=== PATIENT | male | born 1940 | race Caucasian/White ===

== ENCOUNTER 2020-01-16 16:30 | Emergency (ER) | payer OTHER ==
[~2020-01-16] VITALS: Ht 185.4 cm; Wt 149.7 kg
--- NOTE | ~2020-01-16 | EKG ---
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: : 1940 Requested By: Alejandro Lody Order Number: [id number] MD: Measurements Intervals [place] Rate: 64 P: [place]: QRS: -32 QRSD: 116 T: 99 QT: 415 QTc: 428 Interpretive Statements Atrial fibrillation LVH with secondary repolarization abnormality Inferior infarct, old Compared to ECG 10/11/2016 12:43:26 Left ventricular hypertrophy now present Early repolarization now present Sinus bradycardia no longer present Atrial premature complex(es) no longer present Left bundle-branch block no longer present Myocardial infarct finding still present [email or web address] By: 1638 1638 Epiphany Epiphany, /EPI
[~2020-01-16 16:30] MED LIST: ASPIR 8181 MG PO; AZO BLADDER CO300 MG PO; BENICAR HCT 401 EAC1 PO; BYSTOLIC 5 MG5 M1 PO; COENZYME Q10200 M2 PO; CRESTOR10 MG PO; ELIQUIS5 MG PO; LASIX 40 MG TAB40 M2 PO; OMEGA-31000 M1 PO; PACERONE 200 M200 M1 PO; POTASSIUM20 PO; PRILOSEC OTC20 MG PO; UNICOMPLEX M TA1 TA1 PO; VITAMIN B COMP1 EAC7 PO; VITAMIN D3400 UNIT PO
[2020-01-16 16:59] LABS: ABSOLUTE NEUTROPHILS 3.6 thou/uL (1.4-8.2); BASOPHILS 1.3 % (0.0-2.0); EOSINOPHILS 1.3 % (0.0-3.0); HEMATOCRIT 43.3 % (42.0-52.0); HEMOGLOBIN 14.4 gm/dL (14.0-18.0); LYMPHOCYTES 20.3 % (24.0-44.0); MCH 31.9 pg (26.0-34.0); MCHC 33.3 g/dL (28.0-37.0); MCV 95.9 fL (80.0-100.0); MONOCYTES 6.6 % (1.0-8.0); PLATELET COUNT 146 thou/uL (150-400); POLYS 70.5 % (36.0-66.0); RBC 4.52 mil/uL (4.50-6.00); RDW 15.1 % (10.5-14.5); WBC 5.1 thou/uL (4.0-11.0)
[2020-01-16 17:12] LABS: APTT 29.3 Seconds (24.5-32.8); INR 1.3; PROTIME 12.9 Seconds (9.3-11.4)
[2020-01-16 17:18] LABS: ANION GAP 9 mmol/L (7-16); BUN 20 mg/dL (7-18); CALCIUM 9.2 mg/dL (8.5-10.1); CHLORIDE 101 mmol/L (98-107); CO2 29 mmol/L (21-32); CREATININE 1.4 mg/dL (0.7-1.3); GLUCOSE 112 mg/dL (74-106); POTASSIUM 3.8 mmol/L (3.5-5.1); SODIUM 139 mmol/L (136-145)
[2020-01-16 17:23] LABS: ALBUMIN 3.6 g/dL (3.4-5.0); SGOT 25 U/L (15-37); SGPT 23 U/L (30-65); TOTAL BILIRUBIN 0.6 mg/dL (<0.1-1.0); TOTAL PROTEIN 7.4 g/dL (6.4-8.2); TROPONIN-I <0.06 ng/mL (<0.06)
[2020-01-16] MEDS ORDERED: IRBESARTAN300 MG PO (18:02)
[2020-01-16] MEDS ORDERED: HYDROCHLOROTHIA25 M2 PO (18:02)
[2020-01-16] MEDS ORDERED: BYSTOLIC10 MG PO (18:03)
[2020-01-16 18:32] VITALS: BP 179/83
--- NOTE | 2020-01-17 13:20 | EKG ---
[facility] [place] [address] [place] [address] ELECTROCARDIOGRAM REPORT Name: CHASTITY CAUSEY V Room #: DEP [facility]#: [id number] Admission: 01/16/20 Attend Phys: Discharge: 01/16/20 Date of : 40 Report #: [id number] THIS REPORT FOR: cc: Margarita Barroso MD, J. Christopher MD Lundgren, Craig H. MD [facility] ~ THIS REPORT FOR: //name// [facility] ED Test Date: 2020-01-16 Test Time: 16:38:16 Pat Name: CHASTITY CAUSEY Department: Room: Gender: Layout Former: : 1940 Requested By: Alejandro Loyd Order Number: [id number] MD: Kenji Recio Measurements Intervals [place] Rate: 64 P: [place]: QRS: -32 QRSD: 116 T: 99 QT: 415 QTc: 428 Interpretive Statements Atrial fibrillation LVH with secondary repolarization abnormality Inferior infarct, old Compared to ECG 10/11/2016 12:43:26 Left ventricular hypertrophy now present Atrial fibrillation has replaced sinus bradycardia Electronically Signed On 01-17-2020 13:19:37 CDT by Kenji Recio [email or web address] <ELECTRONICALLY SIGNED> By: Kenji Recio MD, [facility] 01/17/20 1319 1638 1638 Kenji Recio MD, [facility] /EPI
== END 2020-01-16 18:33 | disposition home or self-care (01) ==
LOC: ER 16:30
PROVIDERS: Emergency Medicine
DX: I48.20 Chronic atrial fibrillation, unspecified (principal); R94.6 Abnormal results of thyroid function studies; I11.0 Hypertensive heart disease with heart failure; I50.9 Heart failure, unspecified; M19.90 Unspecified osteoarthritis, unspecified site; Z79.01 Long term (current) use of anticoagulants; Z98.61 Coronary angioplasty status; Z79.899 Other long term (current) drug therapy; Z79.82 Long term (current) use of aspirin

== ENCOUNTER → 2020-02-23 | Outpatient (CLI) | payer OTHER ==
[~2020-02-23] MED LIST changes: +BYSTOLIC10 MG PO; +HYDROCHLOROTHIA25 M2 PO; +IRBESARTAN300 MG PO
== END ==
LOC: SJCVCIMAG 02-22 11:06
DX: I08.3 Combined rheumatic disorders of mitral, aortic and tricuspid valves (principal); I27.20 Pulmonary hypertension, unspecified; I48.91 Unspecified atrial fibrillation; I11.9 Hypertensive heart disease without heart failure; I71.4 Abdominal aortic aneurysm, without rupture; E78.00 Pure hypercholesterolemia, unspecified; I65.29 Occlusion and stenosis of unspecified carotid artery; E04.1 Nontoxic single thyroid nodule; I25.810 Atherosclerosis of coronary artery bypass graft(s) without angina pectoris; Z95.1 Presence of aortocoronary bypass graft; Z87.891 Personal history of nicotine dependence

== ENCOUNTER → 2020-03-02 | Outpatient (CLI) | payer OTHER ==
[~2020-03-02] VITALS: Ht 188 cm; Wt 147.4 kg
[~2020-03-02] MED LIST changes: +AMIODARONE HCL400 MG PO; +CRESTOR40 MG PO; +FUROSEMIDE 40 M40 MG PO; +OPTIMAL D31250 MCG PO
[2020-03-02 07:51] VITALS: BP 161/82
--- NOTE | 2020-03-02 08:48 | TEE ---
[facility] [place] [place] [address] TRANSESOPHAGEAL ECHOCARDIOGRAM Name: CHASTITY CAUSEY V [id number] Admission: 03/02/20 Attend Phys: Kenji Recio MD, Discharge: Date of : 40 Report #: [id number] THIS REPORT FOR: cc: Margarita Barroso MD, J. Christopher MD Lundgren, Craig H. MD [facility] ~ APPROVED REPORT Study performed: 03/02/2020 07:35:58 EXAM: Transesophageal Echocardiogram with Doppler and Cardioversion Patient Location: Out-Patient Room #: HOLDING Status: routine BSA: 2.64 HR: 64 bpm BP: 176/89 mmHg Rhythm: Atrial Fibrillation Other Information Study Quality: Good Indications Atrial Fibrillation Cardioversion Hx: CABG, cardioversions, HTN, HLP. Echo Enhancing Agent Indication: Rule out Shunt Agent(s) / Amount(s) Used: Agitated Saline 7 cc Procedure After obtaining informed consent, patient underwent transesophageal echo in the [facility]. Type of Sedation : Conscious Sedation Sedation was administered by ADI Seals. Sedation was achieved intravenously with: Versed (5.5) Fentanyl (100) Transesophageal probe was inserted and advanced into esophagus without difficulty by Kenji Recio MD. The BELEN was performed without complications. Synchronized Cardioversion acheived with 120 then 200 Joules after 2 attempt(s). [facility] [place] [address] TRANSESOPHAGEAL ECHOCARDIOGRAM Name: CHASTITY CAUSEY V Room #: REG [place]#: [id number] Admission: 03/02/20 Attend Phys: Kenji Recio, Discharge: Date of : 40 Report #: [id number] Rhythm following Synchronized Cardioversion: Normal Sinus Rhythm Throughout the procedure, the blood pressure, pulse oximetry, cardiac rhythm, and rate were monitored. The patient tolerated the procedure without adverse effects. Recovery from conscious sedation was uneventful and vital signs were stable. Left Ventricle Left ventricle is dilated. There is concentric left ventricular hypertrophy. Left ventricular systolic function is low normal. LVEF is 50%. Right Ventricle The right ventricle is normal size. The right ventricular systolic function is normal. Atria Left atrium is severely dilated. No thrombus is visualized in the left atrium or appendage. No shunting noted with contrast bubble injection. The right atrium size is normal. Aortic Valve The aortic valve is normal in structure. No aortic regurgitation is present. There is no aortic valvular stenosis. Mitral Valve The mitral valve is normal in structure. Mild mitral regurgitation. No evidence of mitral valve stenosis. Tricuspid Valve The tricuspid valve is normal in structure. Trace tricuspid regurgitation. Pulmonic Valve The pulmonary valve is normal in structure. Trace pulmonic regurgitation. Great Vessels The aortic root is normal in size. Ascending aorta is dilated. Atherosclerotic plaque is present in the aorta. IVC is normal in size and collapses >50% with inspiration. Pericardium There is no pericardial effusion. Critical Notification [facility] [address] [place] [address] TRANSESOPHAGEAL ECHOCARDIOGRAM Name: CHASTITY CAUSEY V Room #: REG [facility]#: [id number] Admission: 03/02/20 Attend Phys: Kenji Recio, Discharge: Date of : 40 Report #: [id number] Physician Notified <Conclusion> Left ventricular systolic function is low normal. LVEF is 50%. Left atrium is severely dilated. No shunting noted with contrast bubble injection. No thrombus is visualized in the left atrium or appendage. The aortic valve is normal in structure. No aortic regurgitation or stenosis. The mitral valve is normal in structure. Mild mitral regurgitation. There is no pericardial effusion. Successful cardioversion following two biphasic synchronous joules shocks (120J, 200J) <ELECTRONICALLY SIGNED> By: Kenji Recio MD, FACC 03/02/2046 5 5 Kenji Recio MD, FACC /INF
== END | disposition home or self-care (01) ==
LOC: CATH 06:26
DX: I48.91 Unspecified atrial fibrillation (principal); I08.1 Rheumatic disorders of both mitral and tricuspid valves; I70.0 Atherosclerosis of aorta; I11.0 Hypertensive heart disease with heart failure; I50.9 Heart failure, unspecified; E78.5 Hyperlipidemia, unspecified; M19.90 Unspecified osteoarthritis, unspecified site; E66.09 Other obesity due to excess calories; Z82.49 Family history of ischemic heart disease and other diseases of the circulatory system; Z95.1 Presence of aortocoronary bypass graft; Z87.891 Personal history of nicotine dependence; Z98.890 Other specified postprocedural states; Z79.899 Other long term (current) drug therapy; Z79.01 Long term (current) use of anticoagulants

== ENCOUNTER → 2020-03-09 | Outpatient (CLI) | payer OTHER | LOC: SJCVCIMAG 12:41 → SJCVC 12:41 → SJCVCIMAG 03-10 16:10 | DX: I44.0 Atrioventricular block, first degree (principal); I44.7 Left bundle-branch block, unspecified; I25.10 Atherosclerotic heart disease of native coronary artery without angina pectoris; I48.91 Unspecified atrial fibrillation; I71.4 Abdominal aortic aneurysm, without rupture; I10 Essential (primary) hypertension; E78.00 Pure hypercholesterolemia, unspecified; G47.33 Obstructive sleep apnea (adult) (pediatric); I51.7 Cardiomegaly; Z95.1 Presence of aortocoronary bypass graft ==

== ENCOUNTER → 2020-06-10 | Outpatient (CLI) | payer OTHER | LOC: SJCVC 13:39 | PROVIDERS: ATTEND Internal Medicine Cardiovascular Disease | DX: R94.31 Abnormal electrocardiogram [ECG] [EKG] (principal); I11.9 Hypertensive heart disease without heart failure; R00.1 Bradycardia, unspecified; R00.0 Tachycardia, unspecified; I25.10 Atherosclerotic heart disease of native coronary artery without angina pectoris; I48.0 Paroxysmal atrial fibrillation; I71.4 Abdominal aortic aneurysm, without rupture; I73.9 Peripheral vascular disease, unspecified; G47.33 Obstructive sleep apnea (adult) (pediatric) ==

== ENCOUNTER → 2021-01-18 | Outpatient (CLI) | payer OTHER | LOC: SJCVC 13:05 | PROVIDERS: ATTEND Internal Medicine Cardiovascular Disease | DX: I45.10 Unspecified right bundle-branch block (principal); R94.31 Abnormal electrocardiogram [ECG] [EKG]; I25.810 Atherosclerosis of coronary artery bypass graft(s) without angina pectoris; I48.0 Paroxysmal atrial fibrillation; I71.4 Abdominal aortic aneurysm, without rupture; I10 Essential (primary) hypertension; E78.00 Pure hypercholesterolemia, unspecified; G47.33 Obstructive sleep apnea (adult) (pediatric); I77.9 Disorder of arteries and arterioles, unspecified; E66.9 Obesity, unspecified; Z82.49 Family history of ischemic heart disease and other diseases of the circulatory system; Z95.1 Presence of aortocoronary bypass graft; Z87.891 Personal history of nicotine dependence; Z79.899 Other long term (current) drug therapy ==

== ENCOUNTER → 2021-06-12 | Outpatient (CLI) | payer OTHER | LOC: SJCVCIMAG 08:29 | PROVIDERS: ATTEND Internal Medicine Cardiovascular Disease | DX: I08.1 Rheumatic disorders of both mitral and tricuspid valves (principal); R94.31 Abnormal electrocardiogram [ECG] [EKG]; I48.91 Unspecified atrial fibrillation; I71.4 Abdominal aortic aneurysm, without rupture; I70.8 Atherosclerosis of other arteries; I72.3 Aneurysm of iliac artery; I11.9 Hypertensive heart disease without heart failure; I25.10 Atherosclerotic heart disease of native coronary artery without angina pectoris; E78.00 Pure hypercholesterolemia, unspecified; G47.33 Obstructive sleep apnea (adult) (pediatric); I48.0 Paroxysmal atrial fibrillation; I77.9 Disorder of arteries and arterioles, unspecified; E66.9 Obesity, unspecified; Z95.1 Presence of aortocoronary bypass graft; Z79.899 Other long term (current) drug therapy; Z86.16 Personal history of COVID-19; Z87.891 Personal history of nicotine dependence; Z82.49 Family history of ischemic heart disease and other diseases of the circulatory system ==

== ENCOUNTER → 2021-06-14 | Outpatient (CLI) | payer OTHER ==
[2021-06-14 15:13] LABS: CREATININE 1.4 mg/dL (0.7-1.3)
== END ==
LOC: CAT 14:19
PROVIDERS: ATTEND Internal Medicine Cardiovascular Disease
DX: I77.811 Abdominal aortic ectasia (principal); I25.10 Atherosclerotic heart disease of native coronary artery without angina pectoris; N28.89 Other specified disorders of kidney and ureter; K76.89 Other specified diseases of liver; N28.1 Cyst of kidney, acquired; I72.3 Aneurysm of iliac artery; M47.815 Spondylosis without myelopathy or radiculopathy, thoracolumbar region

== ENCOUNTER → 2021-07-05 | Outpatient (CLI) | payer OTHER | LOC: SJCVC 15:30 → SJCVCIMAG 15:30 | PROVIDERS: ATTEND Nuclear Medicine Nuclear Cardiology | DX: I65.23 Occlusion and stenosis of bilateral carotid arteries (principal); I71.4 Abdominal aortic aneurysm, without rupture; I48.0 Paroxysmal atrial fibrillation; I77.9 Disorder of arteries and arterioles, unspecified; I25.10 Atherosclerotic heart disease of native coronary artery without angina pectoris; I10 Essential (primary) hypertension; E78.00 Pure hypercholesterolemia, unspecified; Z95.1 Presence of aortocoronary bypass graft; K40.90 Unilateral inguinal hernia, without obstruction or gangrene, not specified as recurrent; E66.9 Obesity, unspecified; G47.33 Obstructive sleep apnea (adult) (pediatric); B02.9 Zoster without complications; Z87.891 Personal history of nicotine dependence; Z82.49 Family history of ischemic heart disease and other diseases of the circulatory system; Z79.899 Other long term (current) drug therapy ==

== ENCOUNTER → 2021-07-20 | Outpatient (CLI) | payer OTHER ==
[~2021-07-20] VITALS: Ht 185.4 cm; Wt 151.5 kg
[~2021-07-20] MED LIST changes: +BETA-SITOSTEROL PO; +COQ-10100 MG PO; +DUTASTERIDE0.5 MG PO; +FISH OIL 1,0001 EAC9 PO; +KLOR-CON M2020 MEQ PO; +MULTI VITAMIN1 EACH PO; +OMEPRAZOLE 20 M20 M1 PO; +TORSEMIDE20 MG PO; +VITCB500GO PO; +ZINC50 M2 PO
[2021-07-20 07:30] VITALS: BP 114/70
[2021-07-20 08:08] LABS: HEMATOCRIT 42.1 % (42.0-52.0); HEMOGLOBIN 13.6 gm/dL (14.0-18.0); MCH 31.5 pg (26.0-34.0); MCHC 32.3 g/dL (28.0-37.0); MCV 97.5 fL (80.0-100.0); RBC 4.32 mil/uL (4.50-6.00); RDW 14.7 % (10.5-14.5); WBC 5.4 thou/uL (4.0-11.0)
[2021-07-20 08:11] LABS: CALCIUM 9.3 mg/dL (8.5-10.1); POTASSIUM 3.9 mmol/L (3.5-5.1)
[2021-07-20 15:15] LABS: URINE BILIRUBIN NEGATIVE (Negative); URINE BLOOD NEGATIVE (Negative); URINE CLARITY CLEAR; URINE COLOR YELLOW; URINE GLUCOSE-RANDOM* NEGATIVE (Negative); URINE KETONES TRACE (Negative); URINE LEUKOCYTES-REFLEX NEGATIVE (Negative); URINE NITRITE-REFLEX NEGATIVE (Negative); URINE PROTEIN (DIPSTICK) TRACE (Negative); URINE SPECIFIC GRAVITY 1.015 (1.005-1.035); URINE UROBILINOGEN 0.2 E.U./dl (0.2-1.0)
== END | disposition home or self-care (01) ==
LOC: CATH 07-19 07:21
PROVIDERS: Surgery Vascular Surgery; ATTEND Nuclear Medicine Nuclear Cardiology
DX: I71.4 Abdominal aortic aneurysm, without rupture (principal); I70.1 Atherosclerosis of renal artery; I11.0 Hypertensive heart disease with heart failure; I50.9 Heart failure, unspecified; I48.91 Unspecified atrial fibrillation; M19.90 Unspecified osteoarthritis, unspecified site; E78.5 Hyperlipidemia, unspecified; K21.9 Gastro-esophageal reflux disease without esophagitis; G47.33 Obstructive sleep apnea (adult) (pediatric); Z98.890 Other specified postprocedural states; Z79.899 Other long term (current) drug therapy; Z87.891 Personal history of nicotine dependence; Z79.01 Long term (current) use of anticoagulants

== ENCOUNTER → 2021-07-28 | Outpatient (CLI) | payer OTHER ==
[2021-07-28 12:58] LABS: HEMATOCRIT 37.1 % (42.0-52.0); HEMOGLOBIN 12.2 gm/dL (14.0-18.0); MCH 31.8 pg (26.0-34.0); MCHC 32.9 g/dL (28.0-37.0); MCV 96.9 fL (80.0-100.0); PLATELET COUNT 176 thou/uL (150-400); RBC 3.82 mil/uL (4.50-6.00); RDW 15.2 % (10.5-14.5)
[2021-07-28 13:12] LABS: APTT 31.6 Seconds (24.5-32.8); INR 1.15; PROTIME 12.5 Seconds (10.5-12.1)
[2021-07-28 13:19] LABS: ALBUMIN 3.3 g/dL (3.4-5.0); CALCIUM 8.9 mg/dL (8.5-10.1); CREATININE 1.4 mg/dL (0.7-1.3); POTASSIUM 4.6 mmol/L (3.5-5.1); TOTAL BILIRUBIN 0.7 mg/dL (0.2-1.0); TOTAL PROTEIN 6.5 g/dL (6.4-8.2)
[2021-07-28 14:20] LABS: PLATELET ESTIMATE NORMAL
--- NOTE | 2021-07-28 14:55 | EKG ---
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 Scientist: ADI VIEYRA : 1940 Requested By: Edenilson Amador Order Number: [id number] : Kyle Moody Measurements Intervals [place] Rate: 66 P: 37 AK: 222 QRS: -18 QRSD: 115 T: 94 QT: 431 QTc: 452 Interpretive Statements Sinus rhythm Atrial premature complex Prolonged AK interval Nonspecific intraventricular conduction delay Inferior infarct, old Compared to ECG 01/16/2020 16:38:16 Atrial premature complex(es) now present Intraventricular conduction delay now present Atrial fibrillation no longer present Left ventricular hypertrophy no longer present Early repolarization no longer present Myocardial infarct finding still present Electronically Signed On 07-28-2021 14:55:23 CDT by Kyle Moody [email or web address] <ELECTRONICALLY SIGNED> By: Kyle Moody MD, FAC 07/28/21 1455 1223 1223 Kyle Moody MD, [facility] /EPI
== END ==
LOC: PAC 10:39
PROVIDERS: ATTEND Surgery Vascular Surgery
DX: Z01.810 Encounter for preprocedural cardiovascular examination (principal); I51.7 Cardiomegaly; I49.1 Atrial premature depolarization; I45.89 Other specified conduction disorders; I25.2 Old myocardial infarction; Z95.828 Presence of other vascular implants and grafts

== ENCOUNTER → 2021-08-01 | Outpatient (CLI) | payer OTHER | LOC: SJCVCIMAG | PROVIDERS: ATTEND Internal Medicine Cardiovascular Disease | DX: I48.0 Paroxysmal atrial fibrillation (principal); I25.10 Atherosclerotic heart disease of native coronary artery without angina pectoris; I65.29 Occlusion and stenosis of unspecified carotid artery ==

== ENCOUNTER 2021-08-03 08:09 | Inpatient (IN) | payer OTHER ==
[2021-08-03] VITALS (11 sets, daily range): BP systolic 76–151; BP diastolic 46–77
[~2021-08-03] VITALS: Ht 185.4 cm; Wt 149.7 kg
[2021-08-04] VITALS (25 sets, daily range): BP systolic 104–125; BP diastolic 45–66
[2021-08-04 07:00] LABS: HEMATOCRIT 31.8 % (42.0-52.0); HEMOGLOBIN 10.4 gm/dL (14.0-18.0); MCH 31.4 pg (26.0-34.0); MCHC 32.6 g/dL (28.0-37.0); MCV 96.4 fL (80.0-100.0); RBC 3.3 mil/uL (4.50-6.00); WBC 6.8 thou/uL (4.0-11.0)
[2021-08-04 07:05] LABS: CREATININE 1.6 mg/dL (0.7-1.3); POTASSIUM 3.5 mmol/L (3.5-5.1)
--- NOTE | 2021-08-04 09:02 | NUR ---
Chart review. POD # 1 asher Keen Gareth up in recliner chair, finishing breakfast. Intro to cm and dcp. He lives home alone, independent when feeling ok. No dme. Manage own medication. Drives. No hh or rehab in the past. Going to start with upper body surgeries 1st and work my way to my knees that needed to be done years ago per gareth. No anticipated needs. Will cont following as needed for dc needs.
--- NOTE | 2021-08-05 12:11 | O ---
[facility] [place] [place] [address] OPERATIVE REPORT Name: CHASTITY CAUSEY Room #: 249-P [facility] M.R.#: [id number] Admission: 08/03/21 Attend Phys: Edenilson Amador MD Discharge: 08/04/21 Date of : 40 Report #: [id number] THIS REPORT FOR: cc: Tres Recinos,Tres Araujo,Edenilson Larios MD ~ DATE OF SERVICE: 08/03/2021 PREOPERATIVE DIAGNOSIS: Abdominal aortic aneurysm. POSTOPERATIVE DIAGNOSIS: Abdominal aortic aneurysm. OPERATION: Implant of stent graft for abdominal aortic aneurysm with intraoperative arteriography and angioplasty. SURGEONS: Dr. Edenilson Amador and Dr. Noé Alford. MICROFILM OPERATOR: MIRANDA Pedraza. ANESTHESIA: General. INDICATIONS: The patient is an 80-year-old with a large infrarenal abdominal aortic aneurysm. The patient presents with documented expansion of aneurysm, although this is asymptomatic. FINDINGS AND TECHNIQUE: After general anesthesia was established, incisions were made in each groin to expose the common femoral artery. Heparin was given. On each side, the common femoral was entered with an arterial needle followed by guidewire and 6-Afghan sheath. Through the 6-Afghan sheath, a long J-wire was placed and then an exchange catheter was used to place a Aide wire from the femoral artery into the aorta. On each side, a femoral cutdown was made and on the right side, a 22-Afghan sheath was placed and on the left side, a 12-Afghan sheath was placed. Through the right side, the main component was placed, a 28.5 x 14.5 mm x 12 cm Conformable trunk was placed. This was placed below the left renal artery, which had a previous stent and this was used for localization. Unfortunately, the carrier for the aortic device appeared to deform some of the tines of the renal stent. Nevertheless, we were able to place the main component satisfactorily below the [facility] [address] [place] [address] OPERATIVE REPORT Name: CHASTITY CAUSEY Room #: 249-P [facility] .R.#: [id number] Admission: 08/03/21 Attend Phys: Edenilson Amador MD Discharge: 08/04/21 Date of : 40 Report #: [id number] renal artery and this was opened to deploy the contralateral gate. The contralateral gate was cannulated through the left side and position was ascertained with a pigtail catheter and the spin technique. Sheath arteriogram was done through the left side to identify the hypogastric takeoff and with the pigtail catheter in place, we were able to measure and selected a 20 x 13.5 cm limb. This was deployed in the contralateral gate to land above the hypogastric. On the right side, a similar retrograde arteriogram was taken to identify the hypogastric takeoff. An 18 mm x 9.5 cm limb was used to land above the right hypogastric with sufficient length within the main component. With all of the components in place, the compliant balloon was placed up each side to fully deploy and dilate all of the components of the aortic graft. Satisfied with this procedure, attention was turned to the left renal artery. This was cannulated with both skill and difficulty and then balloon dilatation was done to fully deploy the preexisting stent. Finally, the pigtail catheter was replaced and a final arteriogram was taken. This showed good position of the aortic stent graft with no evidence of endoleak and good flow into the renal artery. Satisfied with the graft position, dilators were replaced into the sheath, and sheaths and dilators were removed and then guidewires were removed. On each side, femoral arteriotomy was repaired with interrupted Prolene. Flow was reestablished and protamine was given to reverse the heparin. Hemostasis was ascertained. When hemostasis was satisfactory, the groins were closed in layers. The patient was taken to the recovery area in good condition having tolerated the procedure well. Good distal circulation was ascertained prior to transferring the patient. All counts were reported as correct. <ELECTRONICALLY SIGNED> By: Edenilson Amador MD 08/05/21 1211 1446 1521 Edenilson Amador MD /nt
== END 2021-08-04 16:30 | disposition home or self-care (01) | DRG 269 ==
LOC: PRE → TBA 08:09 → PRE 11:07 → ICU 18:07
PROVIDERS: Physician Assistant; ADMIT Surgery Vascular Surgery; ATTEND Surgery Vascular Surgery
DX: I71.4 Abdominal aortic aneurysm, without rupture (principal); I25.10 Atherosclerotic heart disease of native coronary artery without angina pectoris; I48.0 Paroxysmal atrial fibrillation; E78.00 Pure hypercholesterolemia, unspecified; M19.90 Unspecified osteoarthritis, unspecified site; G47.33 Obstructive sleep apnea (adult) (pediatric); E78.5 Hyperlipidemia, unspecified; I50.9 Heart failure, unspecified; I11.0 Hypertensive heart disease with heart failure; Z20.822 Contact with and (suspected) exposure to COVID-19; I65.29 Occlusion and stenosis of unspecified carotid artery; Z60.2 Problems related to living alone; Z79.01 Long term (current) use of anticoagulants; Z95.1 Presence of aortocoronary bypass graft; Z98.42 Cataract extraction status, left eye; Z98.41 Cataract extraction status, right eye; Z79.899 Other long term (current) drug therapy
CPT/HCPCS: 10078; 47375; 50010; 50101; 50386; 50455; 52287; 54118; 56524; 56526; 56527; 56531; 56668; 56760; 57093; 65020; 65090; 65131; 70005

== ENCOUNTER → 2021-09-13 | Outpatient (CLI) | payer OTHER ==
[2021-09-13 09:42] LABS: CREATININE 1.5 mg/dL (0.7-1.3)
== END ==
LOC: LAB 08:41 → CAT 08:41
PROVIDERS: ATTEND Nuclear Medicine Nuclear Cardiology
DX: Z01.812 Encounter for preprocedural laboratory examination (principal); I71.4 Abdominal aortic aneurysm, without rupture; Z95.828 Presence of other vascular implants and grafts; I25.10 Atherosclerotic heart disease of native coronary artery without angina pectoris

== ENCOUNTER → 2021-09-13 | Outpatient (CLI) | payer OTHER | LOC: SJCVC 11:07 | PROVIDERS: ATTEND Nuclear Medicine Nuclear Cardiology | DX: I11.9 Hypertensive heart disease without heart failure (principal); R94.31 Abnormal electrocardiogram [ECG] [EKG]; I71.4 Abdominal aortic aneurysm, without rupture; I77.9 Disorder of arteries and arterioles, unspecified; I25.10 Atherosclerotic heart disease of native coronary artery without angina pectoris; I48.0 Paroxysmal atrial fibrillation; E78.00 Pure hypercholesterolemia, unspecified; I71.9 Aortic aneurysm of unspecified site, without rupture; I65.23 Occlusion and stenosis of bilateral carotid arteries; G47.33 Obstructive sleep apnea (adult) (pediatric); Z95.1 Presence of aortocoronary bypass graft; Z82.49 Family history of ischemic heart disease and other diseases of the circulatory system; Z87.891 Personal history of nicotine dependence; Z79.899 Other long term (current) drug therapy ==

== ENCOUNTER → 2022-01-03 | Outpatient (CLI) | payer OTHER | LOC: SJCVC 13:30 | PROVIDERS: ATTEND Nuclear Medicine Nuclear Cardiology | DX: R94.31 Abnormal electrocardiogram [ECG] [EKG] (principal); I49.3 Ventricular premature depolarization; I48.0 Paroxysmal atrial fibrillation; E78.00 Pure hypercholesterolemia, unspecified; I11.9 Hypertensive heart disease without heart failure; I25.10 Atherosclerotic heart disease of native coronary artery without angina pectoris; I51.7 Cardiomegaly; G47.33 Obstructive sleep apnea (adult) (pediatric); Z87.891 Personal history of nicotine dependence; Z79.899 Other long term (current) drug therapy; Z86.16 Personal history of COVID-19; Z82.49 Family history of ischemic heart disease and other diseases of the circulatory system ==